=== PATIENT | female | born 1960 | race Caucasian/White ===

== ENCOUNTER → 2017-08-25 | Outpatient (CLI) | payer MEDICARE, BC ==
[~2017-08-25] MED LIST: BACL10TA PO; ESOM1CAP16 PO; GABA100C4 PO; LINA145C PO; MOBI15TA PO; OXYC15TA PO; ROBA500T PO; TRAZ100T10 PO; WELLTAB39 PO; ZANA4CAP PO
[2017-08-25 09:40] LABS: AUTOMATED NEUTROPHIL # 2.5 TH/MM3 (1.8-7.7); BASOPHIL # 0.1 TH/MM3 (0-0.2); BASOPHIL % 1.1 % (0.0-2.0); EOSINOPHIL # 0.3 TH/MM3 (0-0.4); EOSINOPHIL % 5.1 % (0.0-4.0); HEMATOCRIT 40.3 % (35.0-46.0); HEMOGLOBIN 13.5 GM/DL (11.6-15.3); LYMPH % 41.7 % (9.0-44.0); LYMPHOCYTE # 2.4 TH/MM3 (1.0-4.8); MEAN CELL VOLUME 94.5 FL (80.0-100.0); MEAN CORPUSCULAR HEMOGLOBIN 31.7 PG (27.0-34.0); MEAN CORPUSCULAR HGB CONC 33.5 % (32.0-36.0); MEAN PLATELET VOLUME 8.1 FL (7.0-11.0); MONOCYTE # 0.5 TH/MM3 (0-0.9); NEUT % 43.1 % (16.0-70.0); PLATELET COUNT 308 TH/MM3 (150-450); RED BLOOD COUNT 4.27 MIL/MM3 (4.00-5.30); RED CELL DISTRIBUTION WIDTH 13.7 % (11.6-17.2); WHITE BLOOD COUNT 5.9 TH/MM3 (4.0-11.0)
[2017-08-25 09:54] LABS: BICARBONATE 30.2 MEQ/L (21.0-32.0); CALCIUM 9.1 MG/DL (8.5-10.1); CREATININE 0.73 MG/DL (0.50-1.00)
--- NOTE | 2017-08-25 21:52 | EKG ---
Date Performed: 08/25/2017 Time Performed: 08:34:08 PTAGE: 57 years EKG: Sinus rhythm with PAC(s) Borderline ECG NO PREVIOUS TRACING DOCTOR: Jesus Sanchez Interpretating Date/Time 08/25/2017 21:51:32
== END ==
LOC: CPRE 08:11
PROVIDERS: ATTEND Orthopaedic Surgery Orthopaedic Surgery of the Spine
DX: Z01.810 Encounter for preprocedural cardiovascular examination (principal); Z01.812 Encounter for preprocedural laboratory examination; Z01.818 Encounter for other preprocedural examination; M50.30 Other cervical disc degeneration, unspecified cervical region; M47.12 Other spondylosis with myelopathy, cervical region; R94.31 Abnormal electrocardiogram [ECG] [EKG]
CPT/HCPCS: 36415; 80048; 85025; 93005

== ENCOUNTER → 2017-08-26 | Outpatient (CLI) | payer MEDICARE, BC ==
[2017-08-26 08:37] LABS: BILIRUBIN, URINE NEG (NEG); BLOOD, URINE NEG (NEG); GLUCOSE,URINE NEG (NEG); KETONE, URINE NEG (NEG); NITRITE,URINE NEG (NEG); PH, URINE 6.5 (5.0-8.5); URINE COLOR LIGHT-YELLOW (YELLW/STRAW); URINE LEUKOCYTE ESTERASE MOD (NEG)
[2017-08-26 08:48] LABS: WHITE BLOOD CELL CLUMPS MOD
[2017-08-26 08:49] LABS: BACTERIA, URINE RARE /hpf; MUCUS URINE FEW /lpf (OCC); SQUAMOUS EPITHELIAL CELL URINE <1 /hpf (0-5)
== END ==
LOC: CPRE 07:59
PROVIDERS: ATTEND Orthopaedic Surgery Orthopaedic Surgery of the Spine
DX: Z01.812 Encounter for preprocedural laboratory examination (principal); M50.30 Other cervical disc degeneration, unspecified cervical region; M47.12 Other spondylosis with myelopathy, cervical region; R82.99 Other abnormal findings in urine
CPT/HCPCS: 81001; 87086

== ENCOUNTER 2017-09-01 05:30 | Observation (INO) | payer MEDICARE, BC ==
[~2017-09-01] VITALS: Ht 157.5 cm; Wt 79.5 kg
[2017-09-01] MEDS: LACTATED RINGER'S 1000 ML INJ 1,000 ML IV SCH ×2 (01:35→11:00)
[2017-09-01] MEDS ORDERED: VANCOMYCIN 1000 MG/NS 250 ML (for <70 kg) IV SCH ×2 (06:00)
[2017-09-01] MEDS ORDERED: SODIUM CHLORID 0.9% 500 ML IV PRN (06:00)
[2017-09-01] MEDS ORDERED: LACTATED RINGER'S 1000 ML IV PRN (06:00)
[2017-09-01] MEDS ORDERED: POVIDONE IODINE 5% (ANTISEPSIS KIT) 4 APPLICATIONS EACH NARE PRN (06:00)
[2017-09-01] MEDS ORDERED: ceFAZolin 2 GM PREMIX 50 ML IV SCH (06:00)
[2017-09-01] MEDS ORDERED: CHLORHEXIDINE GLUCONATE 2 % 1 PACK (2 CLOTHS) TOPICAL PRN (06:00)
[2017-09-01] MEDS ORDERED: CHLORHEXIDINE GLUCONATE 4% SOLN 120 ML BTL TOPICAL SCH (06:00)
[2017-09-01] MEDS ORDERED: METOPROLOL TARTRATE 25 MG TAB PO PRN (06:00)
[2017-09-01] MEDS ORDERED: GENTAMICIN SULFATE 80 MG/2 ML VIAL ONE (06:30)
[2017-09-01] MEDS ORDERED: BUPIVACAINE/EPINEPHRINE 0.25% PF 30 ML VIAL ONE (06:30)
[2017-09-01] MEDS ORDERED: KETAMINE HCL 500 MG/5 ML VIAL ONE (07:05)
[2017-09-01] MEDS ORDERED: ACETAMINOPHEN 1000 MG/100 ML 100 ML IV ONE (07:05)
[2017-09-01] MEDS ORDERED: PROPOFOL 500 MG/50 ML INJ 100 ML ONE (07:05)
[2017-09-01] MEDS ORDERED: MIDAZOLAM HCL 2 MG/2 ML VIAL ONE (07:06)
[2017-09-01] MEDS ORDERED: ARTIFICIAL TEARS OPTH OINT 3.5 APPLIC/3.5 GM TUBO ONE (07:06)
--- NOTE | 2017-09-01 09:52 | PD.OP ---
cc: Ryan Soria MD; Hubert Soria MD Operative Report Date of Surgery: Sep 01, 2017 Preoperative Diagnosis: Herniated nucleus pulposus C5 6, central. Osteophyte disc complex, C6 7. Cervical radiculopathy. Cervical spinal stenosis Postoperative Diagnosis: Same Procedure: Anterior cervical discectomy decompression and bilateral foraminotomy, C5 6. Anterior cervical discectomy decompression and bilateral foraminotomies, C6 7. Left anterior iliac crest bone graft Anesthesia: Gen. Surgeon: Hubert Soria Electric Melt Operator(s): EDUARDO Murray Operation and Findings: EBL: 50 cc INDICATIONS: Patient is a 57-year-old female with significant neck and arm pain. She has left greater than right arm pain. Investigative studies shows evidence of a significant central disc herniation C5 6 and an osteophyte disc complex C6 7. Despite conservative care, the patient continues to be painful and symptomatically. She presents for surgical treatment. NOTE: Grace Murray PA-C was present for the entire surgical procedure as my assistant professor of history. In my medical opinion her skill and care was necessary for proper management of this patient PROCEDURE: The patient was brought to the operating room and anesthetized in the supine position. This patient was positioned supine on the radiolucent table. All pressure points were protected in the anterior cervical spine and iliac crest was scrubbed with alcohol followed by Hibiclens followed by ChloraPrep. A timeout was done and antibiotics were given within 1 hour time window. Lateral radiographic images were used identifying the proper level. A right anterior incision was made in line with skin creases. The platysma was opened in line with the incision. Deep dissection continued in the interval between the carotid sheath and the esophagus. The longus-coli muscles were lifted on both sides and retractors were positioned allowing good exposure. Lateral radiographic images were used to identify the proper level. Hiwasse style interosseous pins were placed at C5 and C6 allowing exposure to that level. The microscope was rolled into the field. A total discectomy was accomplished and posterior osteophytes were removed. The posterior longitudinal ligament and annulus was taken down. Bilateral foraminotomies were accomplished. The endplates were squared up anticipating later bone grafting. A blunt probe could be placed out each foramen without evidence of nerve root compromise. The C5 pin was placed down to to 7. An anterior exposure was accomplished. We performed a total discectomy with excision of the posterior annulus and posterior longitudinal ligament. Bilateral foraminotomies were accomplished. Osteophytes were removed. The endplates were squared up anticipating later bone grafting. A blunt probe could be placed out each foramen without evidence of nerve root compromise. The left iliac crest was approached. A small stab incision was made allowing percutaneous access to the anterior iliac crest. Multiple cores of cancellous bone were harvested and taken to the back table to be used for later bone grafting. The wound was irrigated anesthetized and closed with 4-0 Vicryl followed by Dermabond. The case was turned over to Dr. Ryan Soria for fusion and instrumentation per his dictation. FINDINGS: There was evidence of a large extruded disc herniation centrally at C5 6 extending posterior to the annulus and posterior longitudinal ligament. There was significant spinal cord compression at that level. There was moderate to advanced bilateral foraminal stenosis at both levels. There was an osteophyte disc complex at C6 7 with moderate central stenosis and a small disc herniations extending centrally and toward the left. Appeared be very satisfactory. NOTE: This surgery was performed in 2 parts. The first part was the neurosurgical decompression performed under the variable power stereo microscope by the undersigned in addition to the bone graft. The second portion of the surgery will be performed by the orthopedic spine component by co -surgeon, Dr. Ryan Soria for the anterior fusion with interbody cage and anterior plate. The skill of 2 surgeons was necessary to perform distinct separate procedural services as dictated above and dictated in the following operative note by Dr. Ryan Soria. Hubert Soria MD Sep 01, 2017 09:52
[2017-09-01] MEDS ORDERED: NALOXONE HCL 0.4 MG/ML AMP IV PUSH PRN (10:45)
[2017-09-01] MEDS ORDERED: ALUMINUM/MAGNESIUM/SIMETH 30 ML CUP PO PRN (10:45)
[2017-09-01] MEDS ORDERED: MORPHINE SULFATE 4 MG/ML INJ IV PUSH PRN (10:45)
[2017-09-01] MEDS ORDERED: PROMETHAZINE INJ 25 MG/ML VIAL IM PRN (10:45)
[2017-09-01] MEDS ORDERED: ONDANSETRON HCL 4 MG/2 ML VIAL IV PUSH PRN (10:45)
[2017-09-01] MEDS ORDERED: *morphine SULFATE 10 MG/ML PERIprocedure ONLY ONE ×3 (10:46→12:01)
[2017-09-01] MEDS ORDERED: Post-op Orders (for Pharmacy) XX ONE (10:50)
[2017-09-01] MEDS ORDERED: DO NOT ADM ANY ANTICOAGULANT DRUGS PRN (11:15)
--- NOTE | 2017-09-01 11:21 | MP ---
cc: RYAN TAPIA M.D. DATE OF SURGERY: September 01, 2017 PREOPERATIVE DIAGNOSIS 1. C5-6 moderate herniated nucleus pulposus, osteophyte disk complex, moderate spinal cord compression, spinal stenosis. 2. C6-7 osteophyte disk complex, spinal stenosis, bilateral foraminal stenosis. 3. Cervical spine degenerative disease, osteoarthritis. 4. Cervical myelopathy, bilateral cervical radiculitis. 5. Left greater than right upper extremity weakness. POSTOPERATIVE DIAGNOSIS 1. C5-6 moderate herniated nucleus pulposus, osteophyte disk complex, moderate spinal cord compression, spinal stenosis. 2. C6-7 osteophyte disk complex, spinal stenosis, bilateral foraminal stenosis. 3. Cervical spine degenerative disease, osteoarthritis. 4. Cervical myelopathy, bilateral cervical radiculitis. 5. Left greater than right upper extremity weakness. PROCEDURE 1. C5-6, C6-7 interbody fusion. 2. C5-6, C6-7 SpineNet ACC anterior cervical cage; C5 to C7 SpineNet Rauscher anterior spinal instrumentation. SURGEON Ryan Tapia MD [employer] MICHEAL Polanco ESTIMATED BLOOD LOSS 50 ccs for the entire case. ANESTHESIA General. DRAINS None. PROCEDURE Dr. Hubert Tapia and myself were co-surgeons. Hubert Tapia performed the neuro surgical decompression portion of the procedure at C5-6 and C6-7 and also left anterior iliac bone grafting. I performed the orthopedic spinal instrumentation and fusion, stabilization portion of the procedure, which is well-described in my operative note. I was not present for Dr. Hubert Tapia's portion of the surgery and he was not present for my portion of the surgery. My marketing support assistant MICHEAL Polanco was present for my portion of the surgical case. She was medically necessary for the case because of the complexity of the case and to facilitate the performance of the procedure. The SOLAR MANAGER at the back table was not a skill set for this case to manipulate the instruments, e.g., the multiple different types of soft tissue retractors, trial implants and permanent implants. The endplate in C6-7 was prepared for fusion. The hyaline cartilage endplate was removed using angled curettes and burs. A 6 10 x 12 ACC cage was placed in the interspace. Anterior iliac crest bone grafting was used under fluoroscopic guidance for interbody fusion. The endplates at C5-6 were prepared for fusion. The hyaline cartilage endplate was removed using angled curettes and burs. A 5 10 x 12 ACC cage was placed in the interspace. Anterior iliac crest bone grafting was used under fluoroscopic guidance for interbody fusion. The anterior osteophytes were removed using multiple different types of rongeurs and a bur. A 40-mm length SpineNet ACC cage was contoured for the patient's appropriate lordosis. Two screws were used in the vertebral body in C5, C6 and C7. The two screws in C5 were 12 mm in length and the two screws in C6 were 14 mm in length and the right screw at C7 vertebral body, the right screw was 14 mm in length, the left screw was 12 mm in length. Each of these were drilled, appropriate length screws were inserted. These screws were 4.0 mm in diameter fixed angled screws. Each screw head was appropriately locked to the plate. The intraoperative fluoroscopy AP and lateral plane confirmed satisfactory position of the bone graft at C5-6, C6-7, satisfactory position of the ACC cages at C5-6, C6-7, satisfactory position of the anterior spinal instrumentation at C5 to C7. The wound was irrigated with copious amounts of sterile saline antibiotic solution. The anterior cervical wound was dry. It was closed in routine manner with multiple interrupted 3-0 Vicryl suture. Subcutaneous tissue was closed in layers with running subcuticular 4-0 Vicryl. Sterile dressings were applied. Dermabond was placed over the skin incisions. Sterile dressings were applied. The patient was placed in a [place] cervical orthosis. The patient tolerated the procedure well and arrived in the recovery room in stable and satisfactory condition. MD DEEPA Srivastava/JOHNATHAN /10:29 AM /10:50 AM
[2017-09-01] MEDS ORDERED: ONDANSETRON HCL 4 MG/2 ML VIAL IV ONE (12:00)
[2017-09-01] MEDS ORDERED: GLYCOPYRROLATE 1 MG/5 ML SYRINGE IV PUSH ONE (12:00)
[2017-09-01] MEDS ORDERED: NEOSTIGMINE 5 MG/5 ML SYRINGE IV PUSH ONE (12:00)
[2017-09-01] MEDS ORDERED: PROPOFOL 200 MG/20 ML AMP IV ONE (12:00)
[2017-09-01] MEDS ORDERED: LIDOCAINE HCL 1% PF 5 ML SYRINGE OTHER ONE (12:00)
[2017-09-01] MEDS ORDERED: ROCURONIUM INJ 50 MG/5 ML SYRINGE IV PUSH ONE (12:00)
[2017-09-01] MEDS ORDERED: PHENYLEPH/NS 1000 MCG/10 ML SYR IV ONE (12:00)
[2017-09-01] MEDS: BACLOFEN 10 MG TAB PO SCH ×2 (13:00→16:02)
[2017-09-01] MEDS: GABAPENTIN 100 MG CAP PO SCH ×2 (13:00→16:02)
--- NOTE | 2017-09-01 13:33 | RADRPT ---
EXAM DATE/TIME: 09/01/2017 10:07 [facility] COMPARISON: No previous studies available for comparison. INDICATIONS : Cervical fusion of C5/6 C6/7. MEDICAL HISTORY : Unobtainable. SURGICAL HISTORY : Unobtainable. ENCOUNTER: Initial ACUITY: 1 day PAIN SCORE: Non-responsive. LOCATION: Cervical spine. FINDINGS: 3 spot images of the cervical spine. Anterior fusion hardware is seen at C5 through C7. CONCLUSION: Anterior fusion hardware C5-C7 Fady Howard MD on September 01, 2017 at 13:30 Board Certified Radiologist. This report was verified electronically.
[2017-09-01 13:57] VITALS: BP 108/67; PULSE 87; RESP 17; TEMP 96.4; O2SAT 96
--- NOTE | 2017-09-01 15:43 | PD.PN.STU ---
Subjective Remarks Patient is a 57 y/o female w/ h/o chronic back pain, fibromyalgia, and depression who is s/p anterior cervical discectomy decompression and bilateral foraminotomy of C5-C6 and C6-C7. [facility] was consulted after surgery. She has recently returned from surgery and she complains of soreness in her neck and difficulty sleeping. She denies any chest pain, sob, n/v/d, fevers or chills. Has not yet urinated or had a bowel movement. Objective Vitals Vital Signs Date Time Temp Pulse Resp B/P (MAP) Pulse Ox O2 Delivery O2 Flow Rate FiO2 09/01/17 13:57 96.4 87 17 108/67 (81) 96 09/01/17 13:00 79 12 98/65 (76) 99 Nasal Cannula 2 09/01/17 12:00 73 15 126/60 (82) 100 Nasal Cannula 2 09/01/17 11:30 97.9 71 12 120/59 (79) 100 Nasal Cannula 2 09/01/17 11:15 68 12 126/72 (90) 100 Nasal Cannula 2 09/01/17 11:00 72 14 128/67 (87) 100 Nasal Cannula 2 09/01/17 10:45 73 14 134/67 (89) 99 Nasal Cannula 2 09/01/17 10:41 97.7 72 15 131/71 (91) 97 Nasal Cannula 2 09/01/17 06:22 98.7 95 18 135/61 (85) 96 I/O 08/31/17 08/31/17 08/31/17 09/01/17 09/01/17 09/01/17 07:00 15:00 23:00 07:00 15:00 23:00 Intake Total 1000 ml Output Total 50 ml Balance 950 ml Intake IV Total 1000 ml Output Estimated Blood Loss 50 ml Other Results Allergies Coded Allergies Type Severity Reaction Last Updated Verified No Known Allergies 09/01/17 No Recent Impressions Cervical Spine X-Ray 09/01/17 0000 Signed Impressions: Service Date/Time: August 10:07 - CONCLUSION: Anterior fusion hardware C5-C7 Fady Howard MD 08/30/17 08/30/17 08/31/17 08/31/17 09/01/17 09/01/17 06:00 18:00 06:00 18:00 06:00 18:00 Intake Total 1000 ml Output Total 50 ml Balance 950 ml Intake IV Total 1000 ml Output Estimated Blood Loss 50 ml Orders Procedure Category Date Status Time Lactated Ringer's MED 09/01/17 Complete 1000 Ml Inj (Lr 1000 M 06:00 Sodium Chlorid 0.9% MED 09/01/17 Complete 500 Ml Inj (Ns 500 M 06:00 Metoprolol Tartrate MED 09/01/17 In Process (Lopressor) 06:00 Povidone Iod 5% MED 09/01/17 In Process Antisepsis Kit 06:00 Chlorhexidine 2% MED 09/01/17 In Process Cloth (Chlorhexidine 06:00 Chlorhexidine 4% Top MED 09/01/17 In Process Soln (Hibiclens 4% 06:00 Vancomycin Inj MED 09/01/17 In Process (Vancomycin Inj) 06:00 Cefazolin 2 Gm Premix MED 09/01/17 Complete (Ancef 2 Gm Premix 06:00 Gentamicin Inj MED 09/01/17 Complete (Gentamicin Inj) 06:30 Bupivacaine-Epi Pf MED 09/01/17 Complete 0.25% Inj (Marcaine-E 06:30 Acetaminophen 1000 MED 09/01/17 Complete Mg/100 Ml (Ofirmev 10 07:05 Propofol 500 Mg/50 Ml MED 09/01/17 Complete Inj (Diprivan 500 07:05 Ketamine Inj (Ketalar MED 09/01/17 Complete Inj) 07:05 Artificial Tears Opht MED 09/01/17 Complete Oint (Lacrilube Op 07:06 Fentanyl Inj MED 09/01/17 Complete (Fentanyl Inj) 07:06 Midazolam Inj (Versed MED 09/01/17 Complete Inj) 07:06 Baclofen (Lioresal) MED 09/01/17 In Process 13:00 Bupropion Xl 24 Hr MED 09/02/17 In Process (Wellbutrin Xl 24 Hr) 09:00 Gabapentin (Neurontin) MED 09/01/17 In Process 13:00 Methocarbamol MED 09/01/17 In Process (Robaxin) 21:00 Oxycodone (Roxicodone) MED 09/01/17 In Process 11:00 Trazodone (Desyrel) MED 09/01/17 In Process 21:00 Place In Observation ADMITTING 09/01/17 Transmitted 10:36 Vital Signs (Adult) RICCO 09/01/17 In Process 10:36 Activity Oob Ad Maureen RICCO 09/01/17 In Process 10:36 Diet Regular Basic DIET 09/01/17 Transmitted Lunch Scd Bilateral/Knee RICCO 09/01/17 Complete High 10:36 Overhead Frame W/ ORTHO 09/01/17 Logged Trapeze 10:36 [place] J Collar ORTHO 09/01/17 Logged 10:36 Resp Incentive RSP 09/01/17 Logged Spirometry 10:36 Consult Hospitalist CONS 09/01/17 Transmitted 10:36 Lactated Ringer's MED 09/01/17 In Process 1000 Ml Inj (Lr 1000 M 10:36 Post-Op Orders (For MED 09/01/17 Complete Pharmacy) (Post-Op O 10:50 Cefazolin Inj (Ancef MED 09/01/17 In Process Inj) 16:00 Morphine Inj MED 09/01/17 In Process (Morphine Inj) 10:45 Promethazine Inj MED 09/01/17 In Process (Phenergan Inj) 10:45 Multivitamins-Minerals MED 09/02/17 In Process Therap (Theragran 09:00 Ondansetron Inj MED 09/01/17 In Process (Zofran Inj) 10:45 Al-Mag Hy-Si 40-40-4 MED 09/01/17 In Process Mg/Ml Liq (Mag-Al P 10:45 Naloxone Inj (Narcan MED 09/01/17 In Process Inj) 10:45 Attending Discharge DISCHARGE 09/01/17 Transmitted Order *Morphine Inj MED 09/01/17 Complete (*Morphine Inj 10:46 *Morphine Inj MED 09/01/17 Complete (*Morphine Inj 10:58 Misc Nursing MED 09/01/17 In Process Information 11:15 Pantoprazole MED 09/01/17 In Process (Protonix) 21:00 Trapeze Set-Up ORTHO 09/01/17 Complete (Hub Use Only)Inp Phy CONS 09/01/17 Transmitted Cons/Ref *Morphine Inj MED 09/01/17 Complete (*Morphine Inj 12:01 Spine, Cervical - Ltd [facility] 09/01/17 Resulted (Ap&Lat) Fluoroscopy,Port Up [facility] 09/01/17 Taken To 1 Hr Sds Pre Op Care [facility] 09/01/17 Complete Class Iv Pacu Ea 30 [facility] 09/01/17 Complete MIN General/Pacu [facility] 09/01/17 Complete Post Anesthesia Oxygen [facility] 09/01/17 Complete Vital Signs Date Time Temp Pulse Resp B/P (MAP) Pulse Ox O2 Delivery O2 Flow Rate FiO2 09/01/17 13:57 96.4 87 17 108/67 (81) 96 09/01/17 13:00 79 12 98/65 (76) 99 Nasal Cannula 2 09/01/17 12:00 73 15 126/60 (82) 100 Nasal Cannula 2 09/01/17 11:30 97.9 71 12 120/59 (79) 100 Nasal Cannula 2 09/01/17 11:15 68 12 126/72 (90) 100 Nasal Cannula 2 09/01/17 11:00 72 14 128/67 (87) 100 Nasal Cannula 2 09/01/17 10:45 73 14 134/67 (89) 99 Nasal Cannula 2 09/01/17 10:41 97.7 72 15 131/71 (91) 97 Nasal Cannula 2 09/01/17 06:22 98.7 95 18 135/61 (85) 96 Objective Remarks GENERAL: WN/WD pleasant female in no apparent distress who is observed sitting and getting ready to eat her meal SKIN: Warm and dry. HEAD: Atraumatic. Normocephalic. EYES: Pupils equal and round. No scleral icterus. No injection or drainage. ENT: No nasal bleeding or discharge. Mucous membranes pink and moist. NECK: Trachea midline. No JVD. Neck immobilizer present CARDIOVASCULAR: Regular rate and rhythm. RESPIRATORY: No accessory muscle use. Clear to auscultation. Breath sounds equal bilaterally. GASTROINTESTINAL: Abdomen soft, non-tender, nondistended. Hepatic and splenic margins not palpable. MUSCULOSKELETAL: Extremities without clubbing, cyanosis, or edema. No obvious deformities. NEUROLOGICAL: Awake and alert. No obvious cranial nerve deficits. Motor grossly within normal limits. Five out of 5 muscle strength in the arms and legs. Normal speech. PSYCHIATRIC: Tearful mood and appropriate affect; insight and judgment normal. A/P Assessment and Plan Patient is a 57 y/o female w/ h/o chronic back pain, fibromyalgia, and depression who is s/p anterior cervical discectomy decompression and bilateral foraminotomy of C5-C6 and C6-C7. 1) Chronic Back Pain - surgery went well. complains of minor soreness in her neck. currently on baclofen, gabapentin, oxycodone 15 mg, morphine 5mg, IV Vancomycin prohpylaxis. If pain is not managed with current regime, will reassess, but this should cover it. Per patient surgery expects discharge tomorrow 2) Urinary Rentition - has not yet passed urine. It is still early, however will order straight cath PRN in case condition does not improve 3) Fibromyalgia - controlled with above pain medications 4) Depression - controlled with welbutrin Butch Fowler M3 Sep 01, 2017 15:43
[2017-09-01 16:00] VITALS: BP 108/72; PULSE 88; RESP 17; TEMP 95.9; O2SAT 95
[2017-09-01 16:06] VITALS: BP 108/72; PULSE 88; RESP 16; TEMP 95.9; O2SAT 98
--- NOTE | 2017-09-01 18:25 | HHI.HP ---
[facility] Service [facility] Hospitalists Primary Care Physician No Primary Care Physician Admission Diagnosis Diagnoses: Chief Complaint: Neck pain, left arm pain and numbness. Travel History International Travel<30 Days: No Contact w/Intl Traveler <30 Da: No Traveled to Known Affected Are: No History of Present Illness This is a 57-year-old female with past medical history significant for chronic back pain, fibromyalgia and depression who presents to [facility] after she has been complaining from neck pain associated with left hand pain and numbness. The patient states that on June of last year she fell down the stairs and sustained multiple traumatic injuries. However after returning home she has been having on and off left arm pain and numbness. the patient is status post anterior cervical discectomy decompression and bilateral foraminotomy of C5-C6 and C6-C7. I am being consulted for general management. The patient states she was nauseous earlier but this has resolved. Denies chest pain, shortness of breath, cough, nausea, vomiting. States pain in the left arm has improved but is still slightly numb. Review of Systems As per history of present illness, other systems reviewed them in negative. Past Family Social History Past Medical History Chronic back pain, fibromyalgia and depression. Past Surgical History 1. Lumbar laminectomy. 2. Pain stimulator placement. 3. Bladder enlargement. 4. Tubal ligation. Reported Medications Reported Meds & Active Scripts Active Reported Esomeprazole DR 40 Mg Capdr 80 Mg PO DAILY Robaxin (Methocarbamol) 500 Mg Tab 500 Mg PO HS Baclofen 10 Mg Tab 10 Mg PO TID Oxycodone (Oxycodone HCl) 15 Mg Tab 15 Mg PO Q4H PRN Gabapentin 100 Mg Cap 100 Mg PO TID Wellbutrin Xl 24 HR (Bupropion HCl) 300 Mg Tab 300 Mg PO DAILY Zanaflex (Tizanidine HCl) 4 Mg Cap 4 Mg PO HS Trazodone (Trazodone HCl) 100 Mg Tablet 100 Mg PO HS Mobic (Meloxicam) 15 Mg Tab 15 Mg PO DAILY Allergies: Coded Allergies: No Known Allergies (Unverified , 09/01/17) Active Ordered Medications Current Medications Medications (Trade) Dose Ordered Sig/Eligio Route Start Time Stop Time Status Last Admin (Lopressor) 25 mg SHOE CUTTER PRN PO 09/01/17 06:00 09/04/17 05:59 (Betadine 5% Antisepsis Kit) 1 applic SHOE CUTTER PRN EACH NARE 09/01/17 06:00 09/04/17 05:59 09/01/17 07:09 (Chlorhexidine 2% Cloth) 3 pack SHOE CUTTER PRN TOPICAL 09/01/17 06:00 09/04/17 05:59 09/01/17 06:30 (Hibiclens 4% Top Soln) 1 applic ONCE TOPICAL 09/01/17 06:00 09/04/17 05:59 09/01/17 07:08 Vancomycin HCl 1000 mg/Sodium Chloride 250 ml @ 250 mls/hr SHOE CUTTER IV 09/01/17 06:00 09/02/17 05:59 09/01/17 07:00 (Lioresal) 10 mg TID PO 09/01/17 13:00 09/01/17 16:02 (Wellbutrin Xl 24 Hr) 300 mg DAILY PO 09/02/17 09:00 (Neurontin) 100 mg TID PO 09/01/17 13:00 09/01/17 16:02 (Robaxin) 500 mg HS PO 09/01/17 21:00 (Protonix) 40 mg BID PO 09/01/17 21:00 (Roxicodone) 15 mg Q4H PRN PO 09/01/17 11:00 09/01/17 13:46 (Desyrel) 100 mg HS PO 09/01/17 21:00 Lactated Ringer's 1,000 ml @ 80 mls/hr [id number] IV 09/01/17 10:36 09/01/17 11:00 Cefazolin Sodium 1000 mg/Sodium Chloride 100 ml @ 200 mls/hr Q8H IV 09/01/17 16:00 09/02/17 08:29 09/01/17 16:03 (Morphine Inj) 5 mg Q3H PRN IV PUSH 09/01/17 10:45 (Phenergan Inj) 25 mg Q4H PRN IM 09/01/17 10:45 (Theragran M Tab) 1 tab BID PO 09/02/17 09:00 11/01/17 08:59 (Zofran Inj) 4 mg Q6H PRN IV PUSH 09/01/17 10:45 (Mag-Al Plus Susp Liq) 30 ml Q6H PRN PO 09/01/17 10:45 (Narcan Inj) 0.4 mg UNSCH PRN IV PUSH 09/01/17 10:45 Miscellaneous Information ALL NURSING DEPARTME... UNSCH PRN .XX 09/01/17 11:15 09/02/17 11:14 Family History Mother had clots and lung disease. Father reportedly healthy. Social History Denies smoking or drinking alcohol. Physical Exam Vital Signs Vital Signs Date Time Temp Pulse Resp B/P (MAP) Pulse Ox O2 Delivery O2 Flow Rate FiO2 09/01/17 16:06 95.9 88 16 108/72 (84) 98 09/01/17 13:57 96.4 87 17 108/67 (81) 96 09/01/17 13:00 79 12 98/65 (76) 99 Nasal Cannula 2 09/01/17 12:00 73 15 126/60 (82) 100 Nasal Cannula 2 09/01/17 11:30 97.9 71 12 120/59 (79) 100 Nasal Cannula 2 09/01/17 11:15 68 12 126/72 (90) 100 Nasal Cannula 2 09/01/17 11:00 72 14 128/67 (87) 100 Nasal Cannula 2 09/01/17 10:45 73 14 134/67 (89) 99 Nasal Cannula 2 09/01/17 10:41 97.7 72 15 131/71 (91) 97 Nasal Cannula 2 09/01/17 06:22 98.7 95 18 135/61 (85) 96 Physical Exam GENERAL: This is a well-nourished, well-developed patient, in no apparent distress. SKIN: No rashes, ecchymoses or lesions. Cool and dry. HEAD: Atraumatic. Normocephalic. No temporal or scalp tenderness. EYES: Pupils equal round and reactive. Extraocular motions intact. No scleral icterus. No injection or drainage. ENT: Nose without bleeding, purulent drainage or septal hematoma. Throat without erythema, tonsillar hypertrophy or exudate. Uvula midline. Airway patent. NECK: Trachea midline. No JVD or lymphadenopathy. Supple, nontender, no meningeal signs. CARDIOVASCULAR: Regular rate and rhythm without murmurs, gallops, or rubs. RESPIRATORY: Clear to auscultation. Breath sounds equal bilaterally. No wheezes , rales, or rhonchi. GASTROINTESTINAL: Abdomen soft, non-tender, nondistended. No hepato-splenomegaly , or palpable masses. No guarding. MUSCULOSKELETAL: Extremities without clubbing, cyanosis, or edema. No joint tenderness, effusion, or edema noted. No calf tenderness. Negative Homans sign bilaterally. NEUROLOGICAL: Awake and alert. Cranial nerves II through XII intact. Motor and sensory grossly within normal limits. Five out of 5 muscle strength in all muscle groups. Normal speech. Imaging Last Impressions Cervical Spine X-Ray 09/01/17 0000 Signed Impressions: Service Date/Time: August 10:07 - CONCLUSION: Anterior fusion hardware C5-C7 MD Hallie Mast VTE Risk Assessment Hallie VTE Risk Assessment: Mod/High Risk (score >= 2) Caprini Risk Assessment Model Point Value = 1 Point Value = 2 Point Value = 3 Point Value = 5 Age 41-60 Minor surgery BMI > 25 kg/m2 Swollen legs Varicose veins or History of unexplained or recurrent spontaneous Oral contraceptives or hormone replacement Sepsis (< 1 month) Serious lung disease, including pneumonia (< 1 month) Abnormal pulmonary function Acute myocardial infarction Congestive heart failure (< 1 month) History of inflammatory bowel disease Medical patient at bed rest Age 61-74 Arthroscopic surgery Major open surgery (> 45 min) Laparoscopic surgery (> 45 min) Malignancy Confined to bed (> 72 hours) Immobilizing plaster cast Central venous access Age >= 75 History of VTE Family history of VTE Factor V Leiden Prothrombin [id number] Lupus anticoagulant Anticardiolipin antibodies Elevated serum homocysteine Heparin-induced thrombocytopenia Other congenital or acquired thrombophilia Stroke (< 1 month) Elective arthroplasty Hip, pelvis, or leg fracture Acute spinal cord injury (< 1 month) Prophylaxis Regimen Total Risk Factor Score Risk Level Prophylaxis Regimen 0-1 Low Early ambulation 2 Moderate Order ONE of the following: *Sequential Compression Device (SCD) *Heparin 5000 units SQ BID 3-4 Higher Order ONE of the following medications: *Heparin 5000 units SQ TID *Enoxaparin/Lovenox 40 mg SQ daily (WT < 150 kg, CrCl > 30 mL/min) *Enoxaparin/Lovenox 30 mg SQ daily (WT < 150 kg, CrCl > 10-29 mL/min) *Enoxaparin/Lovenox 30 mg SQ BID (WT < 150 kg, CrCl > 30 mL/min) AND/OR *Sequential Compression Device (SCD) 5 or more Highest Order ONE of the following medications: *Heparin 5000 units SQ TID (Preferred with Epidurals) *Enoxaparin/Lovenox 40 mg SQ daily (WT < 150 kg, CrCl > 30 mL/min) *Enoxaparin/Lovenox 30 mg SQ daily (WT < 150 kg, CrCl > 10-29 mL/min) *Enoxaparin/Lovenox 30 mg SQ BID (WT < 150 kg, CrCl > 30 mL/min) AND *Sequential Compression Device (SCD) Assessment and Plan Problem List: (1) Cervical spinal stenosis ICD Code: M48.02 - Spinal stenosis, cervical region Plan: Patient is currently in a cervical collar. Management as per orthopedic surgery. Pain control as per orthopedic surgery. Patient currently on IV morphine, Roxicodone. Promethazine IM and Zofran IV as needed for nausea. (2) Cervical radiculopathy ICD Code: M54.12 - Radiculopathy, cervical region Plan: As above. Nahomy baclofen, Robaxin and gabapentin. (3) S/P discectomy for herniated nucleus pulposus ICD Code: Z98.890 - Other specified postprocedural states; Z87.39 - Personal history of other diseases of the musculoskeletal system and connective tissue Plan: As above (4) Urinary retention ICD Code: R33.9 - Retention of urine, unspecified Plan: Will check bladder scan to evaluate postvoid residual volume. (5) Fibromyalgia ICD Code: M79.7 - Fibromyalgia Plan: Seems to be stable. Continue pain medications as above. (6) Depression ICD Code: F32.9 - Major depressive disorder, single episode, unspecified Plan: Seems to be stable on Wellbutrin. Continue. (7) Insomnia ICD Code: G47.00 - Insomnia, unspecified Plan: Continue trazodone. Assessment and Plan GI prophylaxis: Continue PPI. DVT prophylaxis: SCDs, chemoprophylaxis as per orthopedic surgery. Code Status Full code Discussed Condition With Patient, patient's , RN Problem Qualifiers (1) Depression: Qualified Codes: F32.9 - Major depressive disorder, single episode, unspecified (2) Insomnia: Qualified Codes: G47.00 - Insomnia, unspecified Dimitri Bhatt MD Sep 01, 2017 18:25
[2017-09-01] MEDS ORDERED: SENNOSIDES 8.6 MG TAB PO PRN (18:30)
[2017-09-01] MEDS ORDERED: LACTULOSE SYRUP 20 GM/30 ML CUP PO PRN (18:30)
[2017-09-01] MEDS ORDERED: BISACODYL 10 MG SUPP RECTAL PRN (18:30)
[2017-09-01] MEDS ORDERED: MAGNESIUM HYDROXIDE SUSP 30 ML CUP PO PRN (18:30)
[2017-09-01 20:15] VITALS: BP 119/73; PULSE 96; RESP 17; TEMP 99.4; O2SAT 93
[2017-09-01] MEDS ORDERED: METHOCARBAMOL 500 MG TAB PO SCH (21:00)
[2017-09-01] MEDS ORDERED: traZODone HCL 100 MG TAB PO SCH (21:00)
[2017-09-01] MEDS: PANTOPRAZOLE SOD 40 MG DELAYED RELEASE TAB PO SCH (21:36)
[2017-09-01] MEDS: DOCUSATE SODIUM 50 MG/SENNA 8.6 MG TAB PO SCH (21:36)
[2017-09-01 22:03] LABS: HEMATOCRIT 35.3 % (35.0-46.0); HEMOGLOBIN 11.9 GM/DL (11.6-15.3); MEAN CELL VOLUME 93.5 FL (80.0-100.0); MEAN CORPUSCULAR HEMOGLOBIN 31.6 PG (27.0-34.0); MEAN CORPUSCULAR HGB CONC 33.8 % (32.0-36.0); MEAN PLATELET VOLUME 7.5 FL (7.0-11.0); PLATELET COUNT 364 TH/MM3 (150-450); RED BLOOD COUNT 3.78 MIL/MM3 (4.00-5.30); WHITE BLOOD COUNT 7.3 TH/MM3 (4.0-11.0)
[2017-09-01 22:34] LABS: BICARBONATE 29.4 MEQ/L (21.0-32.0); CALCIUM 8.3 MG/DL (8.5-10.1); CREATININE 0.85 MG/DL (0.50-1.00)
[2017-09-02 00:28] VITALS: BP 92/54; PULSE 80; RESP 16; TEMP 97; O2SAT 95
[2017-09-02 04:10] VITALS: BP 97/57; PULSE 84; RESP 16; TEMP 97.2; O2SAT 95
--- NOTE | 2017-09-02 07:05 | PD.ORT.PN ---
Subjective Subjective Remarks pt doing well, post op neck pain, left arm numbness is significantly improved, pre-op arm pain significantly improved Objective Vitals Vital Signs Date Time Temp Pulse Resp B/P (MAP) Pulse Ox O2 Delivery O2 Flow Rate FiO2 09/02/17 04:10 97.2 84 16 97/57 (70) 95 09/02/17 00:28 97.0 80 16 92/54 (67) 95 09/01/17 20:15 99.4 96 17 119/73 (88) 93 09/01/17 16:06 95.9 88 16 108/72 (84) 98 09/01/17 16:00 95.9 88 17 108/72 (84) 95 09/01/17 13:57 96.4 87 17 108/67 (81) 96 09/01/17 13:00 79 12 98/65 (76) 99 Nasal Cannula 2 09/01/17 12:00 73 15 126/60 (82) 100 Nasal Cannula 2 09/01/17 11:30 97.9 71 12 120/59 (79) 100 Nasal Cannula 2 09/01/17 11:15 68 12 126/72 (90) 100 Nasal Cannula 2 09/01/17 11:00 72 14 128/67 (87) 100 Nasal Cannula 2 09/01/17 10:45 73 14 134/67 (89) 99 Nasal Cannula 2 09/01/17 10:41 97.7 72 15 131/71 (91) 97 Nasal Cannula 2 I/O 09/01/17 09/01/17 09/01/17 09/02/17 09/02/17 09/02/17 07:00 15:00 23:00 07:00 15:00 23:00 Intake Total 1000 ml 825 ml 240 ml Output Total 50 ml 1300 ml Balance 950 ml -475 ml 240 ml Intake Oral 360 ml 240 ml IV Total 1000 ml 465 ml Output Urine Total 1300 ml Estimated Blood Loss 50 ml # Voids 2 # Bowel Movements 0 0 Result Diagram: 09/01/17203609/01/172036 Objective Remarks seen by Dr. Ryan Soria Putnam collar in place Motor is +5/5 to UE Assessment & Plan Assessment and Plan POD # 1 s/p C 5-7 ACDF Putnam collar x 4 weeks patient has pain meds at home, none written here today discharge home today, orthopedically stable Homa Lugo Sep 02, 2017 07:05
[2017-09-02] MEDS: DOCUSATE SODIUM 50 MG/SENNA 8.6 MG TAB PO SCH (07:22)
[2017-09-02] MEDS: GABAPENTIN 100 MG CAP PO SCH (07:22)
[2017-09-02] MEDS: BACLOFEN 10 MG TAB PO SCH (07:22)
[2017-09-02] MEDS: PANTOPRAZOLE SOD 40 MG DELAYED RELEASE TAB PO SCH (07:23)
[2017-09-02 07:43] VITALS: BP 106/59; PULSE 95; RESP 17; TEMP 98.6; O2SAT 94
[2017-09-02] MEDS ORDERED: buPROPion HCL 150 MG EXTENDED RELEASE TAB PO SCH (09:00)
[2017-09-02] MEDS ORDERED: MULTIVITAMINS/MINERALS THERAPEUTIC TAB PO SCH (09:00)
--- NOTE | 2017-09-02 09:59 | HHI.PR ---
Subjective Remarks Denies cp, sob afebrile hypotensive overnight however now normal Objective Vitals Vital Signs Date Time Temp Pulse Resp B/P (MAP) Pulse Ox O2 Delivery O2 Flow Rate FiO2 09/02/17 07:43 98.6 95 17 106/59 (75) 94 09/02/17 04:10 97.2 84 16 97/57 (70) 95 09/02/17 00:28 97.0 80 16 92/54 (67) 95 09/01/17 20:15 99.4 96 17 119/73 (88) 93 09/01/17 16:06 95.9 88 16 108/72 (84) 98 09/01/17 16:00 95.9 88 17 108/72 (84) 95 09/01/17 13:57 96.4 87 17 108/67 (81) 96 09/01/17 13:00 79 12 98/65 (76) 99 Nasal Cannula 2 09/01/17 12:00 73 15 126/60 (82) 100 Nasal Cannula 2 09/01/17 11:30 97.9 71 12 120/59 (79) 100 Nasal Cannula 2 09/01/17 11:15 68 12 126/72 (90) 100 Nasal Cannula 2 09/01/17 11:00 72 14 128/67 (87) 100 Nasal Cannula 2 09/01/17 10:45 73 14 134/67 (89) 99 Nasal Cannula 2 09/01/17 10:41 97.7 72 15 131/71 (91) 97 Nasal Cannula 2 I/O 09/01/17 09/01/17 09/01/17 09/02/17 09/02/17 09/02/17 07:00 15:00 23:00 07:00 15:00 23:00 Intake Total 1000 ml 825 ml 240 ml 100 ml Output Total 50 ml 1300 ml Balance 950 ml -475 ml 240 ml 100 ml Intake Oral 360 ml 240 ml IV Total 1000 ml 465 ml 100 ml Output Urine Total 1300 ml Estimated Blood Loss 50 ml # Voids 2 # Bowel Movements 0 0 Result Diagram: 09/01/17203609/01/172036 Imaging Last Impressions Cervical Spine X-Ray 09/01/17 0000 Signed Impressions: Service Date/Time: August 10:07 - CONCLUSION: Anterior fusion hardware C5-C7 Fady Howard MD Objective Remarks GENERAL: This is a well-nourished, well-developed patient, in no apparent distress. SKIN: No rashes, ecchymoses or lesions. Cool and dry. HEAD: Atraumatic. Normocephalic. No temporal or scalp tenderness. EYES: Pupils equal round and reactive. Extraocular motions intact. No scleral icterus. No injection or drainage. ENT: Nose without bleeding, purulent drainage or septal hematoma. Throat without erythema, tonsillar hypertrophy or exudate. Uvula midline. Airway patent. NECK: Trachea midline. No JVD or lymphadenopathy. Supple, nontender, no meningeal signs. CARDIOVASCULAR: Regular rate and rhythm without murmurs, gallops, or rubs. RESPIRATORY: Clear to auscultation. Breath sounds equal bilaterally. No wheezes , rales, or rhonchi. GASTROINTESTINAL: Abdomen soft, non-tender, nondistended. No hepato-splenomegaly , or palpable masses. No guarding. MUSCULOSKELETAL: Extremities without clubbing, cyanosis, or edema. No joint tenderness, effusion, or edema noted. No calf tenderness. Negative Homans sign bilaterally. NEUROLOGICAL: Awake and alert. Cranial nerves II through XII intact. Motor and sensory grossly within normal limits. Five out of 5 muscle strength in all muscle groups. Normal speech. Urinary Catheter: No Vascular Central Line Catheter: No A/P Problem List: (1) Cervical spinal stenosis ICD Code: M48.02 - Spinal stenosis, cervical region Plan: Patient is currently in a cervical collar. Management as per orthopedic surgery. Pain control as per orthopedic surgery. Patient currently on IV morphine, Roxicodone. Promethazine IM and Zofran IV as needed for nausea. 09/02 Clear to be discharged by orthopedic surgery. (2) Cervical radiculopathy ICD Code: M54.12 - Radiculopathy, cervical region (3) S/P discectomy for herniated nucleus pulposus ICD Code: Z98.890 - Other specified postprocedural states; Z87.39 - Personal history of other diseases of the musculoskeletal system and connective tissue Plan: As above (4) Urinary retention ICD Code: R33.9 - Retention of urine, unspecified Plan: Will check bladder scan to evaluate postvoid residual volume. Patient was able to void by herself. (5) Fibromyalgia ICD Code: M79.7 - Fibromyalgia Plan: Seems to be stable. Continue pain medications as above. (6) Depression ICD Code: F32.9 - Major depressive disorder, single episode, unspecified Plan: Seems to be stable on Wellbutrin. Continue. (7) Insomnia ICD Code: G47.00 - Insomnia, unspecified Plan: Continue trazodone. Discharge Planning Clear to discharged. Problem Qualifiers (1) Depression: Qualified Codes: F32.9 - Major depressive disorder, single episode, unspecified (2) Insomnia: Qualified Codes: G47.00 - Insomnia, unspecified Dimitri Bhatt MD Sep 02, 2017 09:59
== END 2017-09-02 10:59 | disposition home or self-care (01) ==
LOC: HSDC 05:30 → EDUNIT# 09:00 → EDSTATUS 09:00 → N06B 13:41
PROVIDERS: ADMIT Orthopaedic Surgery Orthopaedic Surgery of the Spine; ATTEND Orthopaedic Surgery Orthopaedic Surgery of the Spine
DX: M50.123 Cervical disc disorder at C6-C7 level with radiculopathy (principal); M48.02 Spinal stenosis, cervical region; M25.78 Osteophyte, vertebrae; M47.9 Spondylosis, unspecified; G95.20 Unspecified cord compression; M79.7 Fibromyalgia; F32.9 Major depressive disorder, single episode, unspecified; G47.00 Insomnia, unspecified; I95.9 Hypotension, unspecified
CPT/HCPCS: 00600; 20936; 22551; 22552; 22845; 22853; 72040; 76000; 80048; 85027; 96365; 96366; C1713; G0378; J0131; J0690; J1580; J2250; J2270; J2370; J2405; J2710; J3010; J3370; J7050; J7120